=== PATIENT | male | born 1935 | race Caucasian/White ===

== ENCOUNTER 2021-04-19 04:47 | Day surgery (SDC) | payer OTHER, BC ==
[2021-04-18 16:38] VITALS: BMI 23.9
[2021-04-19 09:47] LABS: BASO % 0.5 % (0-2.0); EOS % 0.7 % (0-4.5); HEMATOCRIT 41.3 % (35.4-49); HEMOGLOBIN 13.7 GM/dL (11.7-16.9); LYMPH % 9.5 % (8-40); MCH 26.1 pg (25.7-33.7); MCHC 33.1 g/dl (32.0-35.9); MEAN CELL VOLUME 78.8 fl (80-96); MEAN PLT VOLUME 9.8 fl (7.5-11.1); NEUT % 78.3 % (42.8-82.8); PLATELET COUNT 223 K/MM3 (134-434); RBC 5.24 M/mm3 (4.00-5.60); RDW 16.7 % (11.9-15.9); WHITE BLOOD COUNT 14.8 K/mm3 (4.0-10.0)
[2021-04-19 09:54] LABS: INR 1.14 (0.83-1.09)
[2021-04-19 14:44] VITALS: BP 167/73; PULSE 70
[2021-04-19 14:49] VITALS: TEMP 97.8
== END 2021-04-19 13:30 | disposition home or self-care (01) ==
LOC: JRADIR 04:47
PROVIDERS: ATTEND Internal Medicine Pulmonary Disease
PROC: 07D63ZX Extraction of Left Axillary Lymphatic, Percutaneous Approach, Diagnostic (ICD-10-PCS; principal; 2021-04-19)
DX: C82.34 Follicular lymphoma grade IIIa, lymph nodes of axilla and upper limb (principal)
CPT/HCPCS: 36415; 38505; 76942-TC; 85025; 85610; 87899; 88305-TC

== ENCOUNTER 2021-06-04 10:22 | Inpatient (IN) | payer OTHER, BC ==
[2021-06-04 11:22] VITALS: BMI 25.0
[2021-06-04 11:25] LABS: URINE APPEARANCE CLEAR; URINE BILIRUBIN NEGATIVE (NEGATIVE); URINE COLOR YELLOW; URINE GLUCOSE (UA) NEGATIVE (NEGATIVE); URINE KETONE NEGATIVE (NEGATIVE); URINE LEUK ESTERASE NEGATIVE (NEGATIVE); URINE NITRITE NEGATIVE (NEGATIVE); URINE PROTEIN TRACE (NEGATIVE)
[2021-06-04 12:03] LABS: BASO % 0.9 % (0-2.0); EOS % 0.3 % (0-4.5); HEMATOCRIT 37.2 % (35.4-49); LYMPH % 9.7 % (8-40); MCH 25.7 pg (25.7-33.7); MCHC 32.3 g/dl (32.0-35.9); MEAN CELL VOLUME 79.5 fl (80-96); MEAN PLT VOLUME 9.9 fl (7.5-11.1); NEUT % 76.1 % (42.8-82.8); PLATELET COUNT 178 10^3/uL (134-434); RBC 4.68 M/mm3 (4.00-5.60); RDW 18.4 % (11.9-15.9); WHITE BLOOD COUNT 9.7 K/mm3 (4.0-10.0)
[2021-06-04 12:17] LABS: CHLORIDE 103 mmol/L (98-107); SODIUM 141 mmol/L (136-145)
[2021-06-04 12:19] LABS: CALCIUM 13.7 mg/dL (8.5-10.1)
[2021-06-04 12:20] LABS: ALBUMIN 2.6 g/dl (3.4-5.0); ANION GAP 10 MMOL/L (8-16); BLOOD UREA NITROGEN 23.1 mg/dL (7-18); CO2 28 mmol/L (21-32); GLUCOSE,RANDOM 93 mg/dL (74-106)
[2021-06-04 12:22] LABS: INR 1.03 (0.83-1.09); PROTHROMBIN TIME (PATIENT) 12.4 SEC (9.7-13.0)
[2021-06-04 12:23] LABS: CREATININE 1.1 mg/dL (0.55-1.3); SGOT/AST 48 U/L (15-37); SGPT/ALT 16 U/L (13-61)
[2021-06-04 12:25] LABS: ACTIVATED PTT 23.3 SECONDS (25.2-36.5); TOT PROT 5.5 g/dl (6.4-8.2)
[2021-06-04 12:26] LABS: ALK PHOS 70 U/L (45-117)
[2021-06-04 12:55] LABS: LACTIC ACID 4.4 mmol/L (0.4-2.0)
[2021-06-04] MEDS ORDERED: SODIUM CHLORIDE 1,000 ML IV STA (13:34)
[2021-06-04] MEDS ORDERED: CALCITONIN - SALMON SYNTHETIC 400 UNIT/2 ML VIAL IM ONE (13:35)
[2021-06-04] MEDS ORDERED: SODIUM CHLORIDE 1,000 ML IV SCH (13:45)
[2021-06-04] MEDS ORDERED: ZOLEDRONIC ACID 4 MG in SODIUM CHLORIDE 100 ML IVPB ONE (14:05)
[2021-06-04] MEDS ORDERED: HALOPERIDOL LACTATE 5 MG/ML IV ONE (16:09)
[2021-06-04] MEDS ORDERED: HALOPERIDOL LACTATE 5 MG/ML ONE (16:10)
[2021-06-04] MEDS ORDERED: ALBUTEROL SO4 2.5/IPRATROPIUM 0.5 INH SOL 3 ML VIAL.NEB. NEB PRN (16:58)
[2021-06-04] MEDS ORDERED: ACETAMINOPHEN 325 MG TABLET (FP) PO PRN (16:58)
[2021-06-04] MEDS: OFLOXACIN 0.3% OPHTHALMIC SOLUTION 5 ML BOTTLE OD SCH ×2 (18:56→22:32)
[2021-06-04 19:39] LABS: LACTIC ACID 4.2 mmol/L (0.4-2.0)
[2021-06-04] MEDS: MIRTAZAPINE 15 MG TABLET (FP) PO SCH ×2 (21:32→21:47)
[2021-06-04] MEDS: MONTELUKAST NA 10 MG TABLET PO SCH ×2 (21:33→21:47)
[2021-06-04] MEDS: ATORVASTATIN CA 40 MG TABLET (FP) PO SCH ×2 (21:33→21:47)
[2021-06-04] MEDS: BUDESONIDE/FORMETEROL FUMARATE 160/4.5 mcg INHALER IH SCH (22:30)
[2021-06-05] MEDS ORDERED: CALCITONIN - SALMON SYNTHETIC 400 UNIT/2 ML VIAL IM ONE (02:00)
[2021-06-05] MEDS: OFLOXACIN 0.3% OPHTHALMIC SOLUTION 5 ML BOTTLE OD SCH ×5 (06:00→21:24)
[2021-06-05 08:03] LABS: HEMATOCRIT 37.4 % (35.4-49); MCH 25.9 pg (25.7-33.7); MCHC 32.2 g/dl (32.0-35.9); MEAN CELL VOLUME 80.5 fl (80-96); MEAN PLT VOLUME 10.1 fl (7.5-11.1); PLATELET COUNT 165 10^3/uL (134-434); RBC 4.65 M/mm3 (4.00-5.60); RDW 18.1 % (11.9-15.9); WHITE BLOOD COUNT 13.3 K/mm3 (4.0-10.0)
[2021-06-05 08:17] LABS: ALBUMIN 2.4 g/dl (3.4-5.0); BLOOD UREA NITROGEN 22.6 mg/dL (7-18); CALCIUM 12.1 mg/dL (8.5-10.1)
[2021-06-05 08:21] LABS: CREATININE 0.9 mg/dL (0.55-1.3)
[2021-06-05 08:22] LABS: BILIRUBIN,TOTAL 1.1 mg/dL (0.2-1); TOT PROT 4.8 g/dl (6.4-8.2)
[2021-06-05] MEDS: BUDESONIDE/FORMETEROL FUMARATE 160/4.5 mcg INHALER IH SCH ×2 (10:18→21:24)
[2021-06-05] MEDS: EZETIMIBE 10 MG TABLET (FP) PO SCH (10:19)
[2021-06-05] MEDS: ASPIRIN COATED 81 MG TABLET.EC PO SCH (10:20)
[2021-06-05] MEDS: PANTOPRAZOLE 40 MG TABLET PO SCH (10:20)
[2021-06-05] MEDS: amLODIPine BESYLATE 5 MG TABLET (FP) PO SCH (10:20)
[2021-06-05] MEDS ORDERED: SODIUM CHLORIDE 250 ML IV STA (11:01)
[2021-06-05] MEDS: CALCITONIN - SALMON SYNTHETIC 400 UNIT/2 ML VIAL IM SCH (12:54)
[2021-06-05] MEDS: SODIUM CHLORIDE 1,000 ML IV SCH (12:59)
[2021-06-05] MEDS ORDERED: DEXTROSE 5%-WATER - 50 ML IVPB ONE (15:14)
[2021-06-05] MEDS ORDERED: cefTRIAXone SODIUM 1 GM VIAL ONE (15:14)
[2021-06-05] MEDS: CEFTRIAXONE 1 GM in DEXTROSE 5%-WATER - 50 ML IVPB SCH (15:21)
[2021-06-05] MEDS: ATORVASTATIN CA 40 MG TABLET (FP) PO SCH (21:22)
[2021-06-05] MEDS: MONTELUKAST NA 10 MG TABLET PO SCH (21:23)
[2021-06-05] MEDS: MIRTAZAPINE 15 MG TABLET (FP) PO SCH (21:23)
[2021-06-06] MEDS: CALCITONIN - SALMON SYNTHETIC 400 UNIT/2 ML VIAL IM SCH (01:03)
[2021-06-06] MEDS: OFLOXACIN 0.3% OPHTHALMIC SOLUTION 5 ML BOTTLE OD SCH ×5 (06:07→22:13)
[2021-06-06 08:28] LABS: ALBUMIN 2.2 g/dl (3.4-5.0); BLOOD UREA NITROGEN 23.2 mg/dL (7-18); CALCIUM 10.9 mg/dL (8.5-10.1)
[2021-06-06 08:31] LABS: CREATININE 0.9 mg/dL (0.55-1.3)
[2021-06-06 08:33] LABS: BILIRUBIN,TOTAL 0.9 mg/dL (0.2-1); TOT PROT 4.4 g/dl (6.4-8.2)
[2021-06-06] MEDS ORDERED: DEXTROSE 5%-WATER - 50 ML IVPB ONE (09:04)
[2021-06-06] MEDS ORDERED: cefTRIAXone SODIUM 1 GM VIAL ONE (09:04)
[2021-06-06 10:29] LABS: BASO % 0.6 % (0-2.0); EOS % 0.2 % (0-4.5); HEMATOCRIT 34.1 % (35.4-49); HEMOGLOBIN 11.1 GM/dL (11.7-16.9); LYMPH % 8.8 % (8-40); MCH 26.5 pg (25.7-33.7); MCHC 32.6 g/dl (32.0-35.9); MEAN PLT VOLUME 10.1 fl (7.5-11.1); MONO % 9.4 % (3.8-10.2); PLATELET COUNT 131 10^3/uL (134-434); RBC 4.21 M/mm3 (4.00-5.60); RDW 18.9 % (11.9-15.9); WHITE BLOOD COUNT 10.7 K/mm3 (4.0-10.0)
[2021-06-06] MEDS: KCL 10 MEQ IVPB 10 MEQ/100 ML INFUS.BAG IVPB SCH ×2 (10:54→11:49)
[2021-06-06] MEDS: PANTOPRAZOLE 40 MG TABLET PO SCH (10:55)
[2021-06-06] MEDS: BUDESONIDE/FORMETEROL FUMARATE 160/4.5 mcg INHALER IH SCH ×2 (10:55→22:12)
[2021-06-06] MEDS: EZETIMIBE 10 MG TABLET (FP) PO SCH (10:55)
[2021-06-06] MEDS: amLODIPine BESYLATE 5 MG TABLET (FP) PO SCH (10:55)
[2021-06-06] MEDS: ASPIRIN COATED 81 MG TABLET.EC PO SCH (10:55)
[2021-06-06] MEDS: CEFTRIAXONE 1 GM in DEXTROSE 5%-WATER - 50 ML IVPB SCH (10:58)
[2021-06-06 11:02] LABS: LACTIC ACID 2.7 mmol/L (0.4-2.0)
[2021-06-06] MEDS: SODIUM CHLORIDE 1,000 ML IV SCH (11:45)
[2021-06-06] MEDS: D5-1/2NS+20 MEQ KCL - 20 MEQ/1,000 ML INFUS.BAG IV SCH (12:51)
[2021-06-06] MEDS ORDERED: MAGNESIUM SULF 50% (8.12 MEQ/2 ML-1 GM VIAL) IVPB ONE (16:24)
[2021-06-06] MEDS: MONTELUKAST NA 10 MG TABLET PO SCH (22:12)
[2021-06-06] MEDS: ATORVASTATIN CA 40 MG TABLET (FP) PO SCH (22:12)
[2021-06-06] MEDS: MIRTAZAPINE 15 MG TABLET (FP) PO SCH (22:12)
[2021-06-07] MEDS: OFLOXACIN 0.3% OPHTHALMIC SOLUTION 5 ML BOTTLE OD SCH ×5 (06:27→21:47)
[2021-06-07 07:55] LABS: BASO % 0.5 % (0-2.0); EOS % 0.3 % (0-4.5); HEMOGLOBIN 12.2 GM/dL (11.7-16.9); LYMPH % 9.4 % (8-40); MCH 26.1 pg (25.7-33.7); MCHC 32.1 g/dl (32.0-35.9); MEAN CELL VOLUME 81.4 fl (80-96); MEAN PLT VOLUME 9.7 fl (7.5-11.1); NEUT % 81.8 % (42.8-82.8); PLATELET COUNT 164 10^3/uL (134-434); RBC 4.67 M/mm3 (4.00-5.60); RDW 19.1 % (11.9-15.9); WHITE BLOOD COUNT 10.8 K/mm3 (4.0-10.0)
[2021-06-07 08:14] LABS: ALBUMIN 2.4 g/dl (3.4-5.0); BLOOD UREA NITROGEN 21.1 mg/dL (7-18); CALCIUM 10.4 mg/dL (8.5-10.1)
[2021-06-07 08:17] LABS: CREATININE 0.7 mg/dL (0.55-1.3)
[2021-06-07 08:19] LABS: TOT PROT 4.9 g/dl (6.4-8.2)
[2021-06-07] MEDS ORDERED: DEXTROSE 5%-WATER - 50 ML IVPB ONE (09:31)
[2021-06-07] MEDS ORDERED: cefTRIAXone SODIUM 1 GM VIAL ONE (09:31)
[2021-06-07 10:11] LABS: MAGNESIUM 1.9 mg/dL (1.8-2.4)
[2021-06-07] MEDS: EZETIMIBE 10 MG TABLET (FP) PO SCH (10:19)
[2021-06-07] MEDS: CEFTRIAXONE 1 GM in DEXTROSE 5%-WATER - 50 ML IVPB SCH (10:19)
[2021-06-07] MEDS: PANTOPRAZOLE 40 MG TABLET PO SCH (10:19)
[2021-06-07] MEDS: ASPIRIN COATED 81 MG TABLET.EC PO SCH (10:19)
[2021-06-07] MEDS: amLODIPine BESYLATE 5 MG TABLET (FP) PO SCH (10:19)
[2021-06-07] MEDS: BUDESONIDE/FORMETEROL FUMARATE 160/4.5 mcg INHALER IH SCH ×2 (10:20→21:46)
[2021-06-07] MEDS: D5-1/2NS+20 MEQ KCL - 20 MEQ/1,000 ML INFUS.BAG IV SCH (11:25)
[2021-06-07] MEDS ORDERED: ALBUTEROL SO4 2.5/IPRATROPIUM 0.5 INH SOL 3 ML VIAL.NEB. NEB PRN (19:21)
[2021-06-07] MEDS ORDERED: ACETAMINOPHEN 325 MG TABLET (FP) PO PRN (19:21)
[2021-06-07] MEDS: ATORVASTATIN CA 40 MG TABLET (FP) PO SCH (21:45)
[2021-06-07] MEDS: MIRTAZAPINE 15 MG TABLET (FP) PO SCH (21:45)
[2021-06-07] MEDS: MONTELUKAST NA 10 MG TABLET PO SCH (21:45)
[2021-06-08] MEDS: OFLOXACIN 0.3% OPHTHALMIC SOLUTION 5 ML BOTTLE OD SCH ×5 (06:09→21:05)
[2021-06-08 08:02] LABS: CALCIUM 10.4 mg/dL (8.5-10.1)
[2021-06-08 08:03] LABS: ALBUMIN 2.3 g/dl (3.4-5.0); BLOOD UREA NITROGEN 17.7 mg/dL (7-18)
[2021-06-08 08:06] LABS: CREATININE 0.7 mg/dL (0.55-1.3)
[2021-06-08 08:08] LABS: BILIRUBIN,TOTAL 1.1 mg/dL (0.2-1)
[2021-06-08] MEDS ORDERED: DEXTROSE 5%-WATER - 50 ML IVPB ONE (09:45)
[2021-06-08] MEDS ORDERED: cefTRIAXone SODIUM 1 GM VIAL ONE (09:45)
[2021-06-08] MEDS: CEFTRIAXONE 1 GM in DEXTROSE 5%-WATER - 50 ML IVPB SCH (09:48)
[2021-06-08] MEDS: PANTOPRAZOLE 40 MG TABLET PO SCH (09:48)
[2021-06-08] MEDS: amLODIPine BESYLATE 5 MG TABLET (FP) PO SCH (09:48)
[2021-06-08] MEDS: ASPIRIN COATED 81 MG TABLET.EC PO SCH (09:48)
[2021-06-08] MEDS: EZETIMIBE 10 MG TABLET (FP) PO SCH (09:48)
[2021-06-08] MEDS: BUDESONIDE/FORMETEROL FUMARATE 160/4.5 mcg INHALER IH SCH ×2 (09:49→21:02)
[2021-06-08] MEDS: AMINO ACIDS/PROTEIN HYDROLYS 30 ML LIQUID.PKT PO SCH (16:58)
[2021-06-08] MEDS: D5-1/2NS+20 MEQ KCL - 20 MEQ/1,000 ML INFUS.BAG IV SCH (16:58)
[2021-06-08] MEDS ORDERED: PT OWN MED DRAWER 7, Y5N ONE (20:39)
[2021-06-08] MEDS: MONTELUKAST NA 10 MG TABLET PO SCH (21:05)
[2021-06-08] MEDS: MIRTAZAPINE 15 MG TABLET (FP) PO SCH (21:05)
[2021-06-08] MEDS: ATORVASTATIN CA 40 MG TABLET (FP) PO SCH (21:05)
[2021-06-09] MEDS: OFLOXACIN 0.3% OPHTHALMIC SOLUTION 5 ML BOTTLE OD SCH ×5 (06:38→21:18)
[2021-06-09] MEDS: D5-1/2NS+20 MEQ KCL - 20 MEQ/1,000 ML INFUS.BAG IV SCH ×2 (06:38→17:52)
[2021-06-09 07:39] LABS: BLOOD UREA NITROGEN 16.2 mg/dL (7-18)
[2021-06-09 07:40] LABS: ALBUMIN 2.1 g/dl (3.4-5.0)
[2021-06-09 07:41] LABS: CALCIUM 9.9 mg/dL (8.5-10.1)
[2021-06-09 07:44] LABS: CREATININE 0.8 mg/dL (0.55-1.3)
[2021-06-09 07:45] LABS: BILIRUBIN,TOTAL 0.9 mg/dL (0.2-1); TOT PROT 4.4 g/dl (6.4-8.2)
[2021-06-09] MEDS ORDERED: DEXTROSE 5%-WATER - 50 ML IVPB ONE (10:36)
[2021-06-09] MEDS ORDERED: cefTRIAXone SODIUM 1 GM VIAL ONE (10:36)
[2021-06-09] MEDS ORDERED: PT OWN MED DRAWER 7, Y5N ONE ×2 (10:36→20:28)
[2021-06-09] MEDS: CEFTRIAXONE 1 GM in DEXTROSE 5%-WATER - 50 ML IVPB SCH (10:40)
[2021-06-09] MEDS: AMINO ACIDS/PROTEIN HYDROLYS 30 ML LIQUID.PKT PO SCH ×2 (10:40→17:52)
[2021-06-09] MEDS: BUDESONIDE/FORMETEROL FUMARATE 160/4.5 mcg INHALER IH SCH ×2 (10:41→21:23)
[2021-06-09] MEDS: PANTOPRAZOLE 40 MG TABLET PO SCH (10:41)
[2021-06-09] MEDS: ASPIRIN COATED 81 MG TABLET.EC PO SCH (10:41)
[2021-06-09] MEDS: amLODIPine BESYLATE 5 MG TABLET (FP) PO SCH (10:41)
[2021-06-09] MEDS: EZETIMIBE 10 MG TABLET (FP) PO SCH (17:52)
[2021-06-09] MEDS: MIRTAZAPINE 15 MG TABLET (FP) PO SCH (21:18)
[2021-06-09] MEDS: MONTELUKAST NA 10 MG TABLET PO SCH (21:18)
[2021-06-09] MEDS: ATORVASTATIN CA 40 MG TABLET (FP) PO SCH (21:20)
[2021-06-10] MEDS: OFLOXACIN 0.3% OPHTHALMIC SOLUTION 5 ML BOTTLE OD SCH ×5 (06:27→21:10)
[2021-06-10] MEDS: AMINO ACIDS/PROTEIN HYDROLYS 30 ML LIQUID.PKT PO SCH ×2 (09:34→17:20)
[2021-06-10] MEDS ORDERED: ALLOPURINOL 100 MG TABLET (FP) PO SCH (10:00)
[2021-06-10] MEDS ORDERED: PT OWN MED DRAWER 7, Y5N ONE (10:34)
[2021-06-10] MEDS ORDERED: cefTRIAXone SODIUM 1 GM VIAL ONE (10:35)
[2021-06-10] MEDS ORDERED: DEXTROSE 5%-WATER - 50 ML IVPB ONE (10:35)
[2021-06-10] MEDS: ALLOPURINOL 300 MG TABLET (FP) PO SCH (10:37)
[2021-06-10] MEDS: ASPIRIN COATED 81 MG TABLET.EC PO SCH (10:37)
[2021-06-10] MEDS: CEFTRIAXONE 1 GM in DEXTROSE 5%-WATER - 50 ML IVPB SCH ×2 (10:37→19:33)
[2021-06-10] MEDS: PANTOPRAZOLE 40 MG TABLET PO SCH (10:37)
[2021-06-10] MEDS: EZETIMIBE 10 MG TABLET (FP) PO SCH (10:37)
[2021-06-10] MEDS: amLODIPine BESYLATE 5 MG TABLET (FP) PO SCH (10:37)
[2021-06-10] MEDS: BUDESONIDE/FORMETEROL FUMARATE 160/4.5 mcg INHALER IH SCH ×2 (10:40→21:10)
[2021-06-10] MEDS: MONTELUKAST NA 10 MG TABLET PO SCH (21:09)
[2021-06-10] MEDS: MIRTAZAPINE 15 MG TABLET (FP) PO SCH (21:09)
[2021-06-10] MEDS: ATORVASTATIN CA 40 MG TABLET (FP) PO SCH (21:09)
[2021-06-11] MEDS: OFLOXACIN 0.3% OPHTHALMIC SOLUTION 5 ML BOTTLE OD SCH ×5 (05:44→22:10)
[2021-06-11 07:52] LABS: BASO % 0.6 % (0-2.0); EOS % 0.3 % (0-4.5); HEMATOCRIT 32.3 % (35.4-49); HEMOGLOBIN 10.8 GM/dL (11.7-16.9); LYMPH % 12.2 % (8-40); MCHC 33.4 g/dl (32.0-35.9); MEAN CELL VOLUME 80.8 fl (80-96); MEAN PLT VOLUME 9.9 fl (7.5-11.1); MONO % 9.8 % (3.8-10.2); NEUT % 77.1 % (42.8-82.8); PLATELET COUNT 122 10^3/uL (134-434); RDW 19.2 % (11.9-15.9); WHITE BLOOD COUNT 9.5 K/mm3 (4.0-10.0)
[2021-06-11 08:04] LABS: ALBUMIN 2.1 g/dl (3.4-5.0); BLOOD UREA NITROGEN 23.5 mg/dL (7-18); CALCIUM 9.8 mg/dL (8.5-10.1)
[2021-06-11 08:06] LABS: CREATININE 0.8 mg/dL (0.55-1.3); URIC ACID 5.6 mg/dL (2.6-7.2)
[2021-06-11 08:08] LABS: BILIRUBIN,TOTAL 1.1 mg/dL (0.2-1); TOT PROT 4.3 g/dl (6.4-8.2)
[2021-06-11] MEDS ORDERED: POTASSIUM CHLORIDE ORAL LIQUID 20 MEQ/15 ML PO ONE ×2 (08:47→15:00)
[2021-06-11] MEDS ORDERED: KCL 10 MEQ IVPB 10 MEQ/100 ML INFUS.BAG IVPB SCH (09:00)
[2021-06-11] MEDS ORDERED: PT OWN MED DRAWER 7, Y5N ONE (09:45)
[2021-06-11] MEDS: PANTOPRAZOLE 40 MG TABLET PO SCH (10:45)
[2021-06-11] MEDS: ASPIRIN COATED 81 MG TABLET.EC PO SCH (10:45)
[2021-06-11] MEDS: ALLOPURINOL 300 MG TABLET (FP) PO SCH (10:45)
[2021-06-11] MEDS: EZETIMIBE 10 MG TABLET (FP) PO SCH (10:46)
[2021-06-11] MEDS: AMINO ACIDS/PROTEIN HYDROLYS 30 ML LIQUID.PKT PO SCH ×2 (10:46→16:41)
[2021-06-11] MEDS: BUDESONIDE/FORMETEROL FUMARATE 160/4.5 mcg INHALER IH SCH ×2 (10:46→22:08)
[2021-06-11] MEDS: amLODIPine BESYLATE 5 MG TABLET (FP) PO SCH (10:46)
[2021-06-11] MEDS: ATORVASTATIN CA 40 MG TABLET (FP) PO SCH (22:08)
[2021-06-11] MEDS: MONTELUKAST NA 10 MG TABLET PO SCH (22:10)
[2021-06-11] MEDS: MIRTAZAPINE 15 MG TABLET (FP) PO SCH (22:10)
[2021-06-12] MEDS: OFLOXACIN 0.3% OPHTHALMIC SOLUTION 5 ML BOTTLE OD SCH ×5 (05:44→21:04)
[2021-06-12 07:45] LABS: HEMATOCRIT 32.6 % (35.4-49); HEMOGLOBIN 10.7 GM/dL (11.7-16.9); MCH 26.5 pg (25.7-33.7); MCHC 32.7 g/dl (32.0-35.9); MEAN PLT VOLUME 9.6 fl (7.5-11.1); PLATELET COUNT 126 10^3/uL (134-434); RBC 4.03 M/mm3 (4.00-5.60); RDW 19.6 % (11.9-15.9); WHITE BLOOD COUNT 9.4 K/mm3 (4.0-10.0)
[2021-06-12 07:56] LABS: CALCIUM 9.9 mg/dL (8.5-10.1)
[2021-06-12 07:57] LABS: MAGNESIUM 1.7 mg/dL (1.8-2.4)
[2021-06-12 08:00] LABS: CREATININE 0.8 mg/dL (0.55-1.3)
[2021-06-12] MEDS: AMINO ACIDS/PROTEIN HYDROLYS 30 ML LIQUID.PKT PO SCH ×2 (08:40→18:09)
[2021-06-12] MEDS ORDERED: PT OWN MED DRAWER 7, Y5N ONE (09:55)
[2021-06-12] MEDS: amLODIPine BESYLATE 5 MG TABLET (FP) PO SCH (10:11)
[2021-06-12] MEDS: PANTOPRAZOLE 40 MG TABLET PO SCH (10:11)
[2021-06-12] MEDS: ASPIRIN COATED 81 MG TABLET.EC PO SCH (10:12)
[2021-06-12] MEDS: ALLOPURINOL 300 MG TABLET (FP) PO SCH (10:12)
[2021-06-12] MEDS: EZETIMIBE 10 MG TABLET (FP) PO SCH (10:12)
[2021-06-12] MEDS: BUDESONIDE/FORMETEROL FUMARATE 160/4.5 mcg INHALER IH SCH ×2 (10:13→21:04)
[2021-06-12] MEDS ORDERED: MAGNESIUM OXIDE 400 MG TABLET (FP) PO ONE (12:25)
[2021-06-12] MEDS: MONTELUKAST NA 10 MG TABLET PO SCH (21:04)
[2021-06-12] MEDS: MIRTAZAPINE 15 MG TABLET (FP) PO SCH (21:04)
[2021-06-12] MEDS: ATORVASTATIN CA 40 MG TABLET (FP) PO SCH (21:04)
[2021-06-13] MEDS: OFLOXACIN 0.3% OPHTHALMIC SOLUTION 5 ML BOTTLE OD SCH ×3 (05:01→14:00)
[2021-06-13] MEDS: AMINO ACIDS/PROTEIN HYDROLYS 30 ML LIQUID.PKT PO SCH (09:14)
[2021-06-13] MEDS: amLODIPine BESYLATE 5 MG TABLET (FP) PO SCH (09:15)
[2021-06-13] MEDS: ASPIRIN COATED 81 MG TABLET.EC PO SCH (09:15)
[2021-06-13] MEDS: ALLOPURINOL 300 MG TABLET (FP) PO SCH (09:15)
[2021-06-13] MEDS: PANTOPRAZOLE 40 MG TABLET PO SCH (09:15)
[2021-06-13] MEDS: EZETIMIBE 10 MG TABLET (FP) PO SCH (09:16)
[2021-06-13] MEDS: BUDESONIDE/FORMETEROL FUMARATE 160/4.5 mcg INHALER IH SCH (09:17)
[2021-06-13 14:13] VITALS: BP 146/77; PULSE 89; TEMP 98.5
== END 2021-06-13 16:46 | DRG 840 ==
LOC: JER 10:22 → JERBED 13:51 → J4W 20:07 → J7W 06-07 18:15
PROVIDERS: ADMIT Family Medicine; ATTEND Family Medicine
DX: C82.38 Follicular lymphoma grade IIIa, lymph nodes of multiple sites (principal); G93.41 Metabolic encephalopathy; C83.30 Diffuse large B-cell lymphoma, unspecified site; N17.9 Acute kidney failure, unspecified; E87.2 Acidosis; N39.0 Urinary tract infection, site not specified; E87.0 Hyperosmolality and hypernatremia; E83.52 Hypercalcemia; R41.82 Altered mental status, unspecified; J44.9 Chronic obstructive pulmonary disease, unspecified; E78.5 Hyperlipidemia, unspecified; I10 Essential (primary) hypertension; E88.09 Other disorders of plasma-protein metabolism, not elsewhere classified; D72.829 Elevated white blood cell count, unspecified; Z99.81 Dependence on supplemental oxygen; Z85.51 Personal history of malignant neoplasm of bladder
CPT/HCPCS: 36415; 70450-TC; 71045-TC-FY; 80048; 80053; 81003; 82955; 82962; 83605; 83615; 83735; 84484; 84550; 85025; 85027; 85610; 85730; 87040; 87086; 93005; 93010; 94640; 97116-GP; 97162-GP; 99285-25; C9803; J3489; U0003; U0005

== ENCOUNTER 2021-06-20 16:17 | Inpatient (IN) | payer OTHER, BC ==
[2021-06-20 17:04] VITALS: BMI 22.7
[2021-06-20] MEDS ORDERED: SODIUM CHLORIDE 1,973 ML IV ONE (17:06)
[2021-06-20] MEDS ORDERED: ACETAMINOPHEN 1000 MG/100 ML VIAL (NON FORMULARY) IVPB ONE (17:07)
[2021-06-20] MEDS ORDERED: ACETAMINOPHEN INJECTION 100 ML IVPB ONE (17:47)
[2021-06-20 18:22] LABS: BASO % 0.9 % (0-2.0); EOS % 0.2 % (0-4.5); HEMATOCRIT 34.6 % (35.4-49); HEMOGLOBIN 11.2 GM/dL (11.7-16.9); LYMPH % 12.5 % (8-40); MCHC 32.4 g/dl (32.0-35.9); MEAN CELL VOLUME 83.3 fl (80-96); MEAN PLT VOLUME 9.4 fl (7.5-11.1); MONO % 8.6 % (3.8-10.2); NEUT % 77.8 % (42.8-82.8); PLATELET COUNT 106 10^3/uL (134-434); RBC 4.16 M/mm3 (4.00-5.60); RDW 21.5 % (11.9-15.9); WHITE BLOOD COUNT 8.8 K/mm3 (4.0-10.0)
[2021-06-20 18:30] LABS: INR 1.24 (0.83-1.09); PROTHROMBIN TIME (PATIENT) 14.9 SEC (9.7-13.0)
[2021-06-20 18:32] LABS: ACTIVATED PTT 23.5 SECONDS (25.2-36.5)
[2021-06-20 18:48] LABS: CHLORIDE 116 mmol/L (98-107); SODIUM 150 mmol/L (136-145)
[2021-06-20 18:52] LABS: ALBUMIN 2.2 g/dl (3.4-5.0); ANION GAP 10 MMOL/L (8-16); BLOOD UREA NITROGEN 39.4 mg/dL (7-18); CO2 24 mmol/L (21-32); GLUCOSE,RANDOM 81 mg/dL (74-106)
[2021-06-20 18:55] LABS: CREATININE 1.1 mg/dL (0.55-1.3); SGOT/AST 61 U/L (15-37); SGPT/ALT 16 U/L (13-61)
[2021-06-20 18:56] LABS: ALK PHOS 76 U/L (45-117); BILIRUBIN,TOTAL 1.1 mg/dL (0.2-1); TOT PROT 4.7 g/dl (6.4-8.2)
[2021-06-20 18:57] LABS: LACTIC ACID 5.2 mmol/L (0.4-2.0)
[2021-06-20] MEDS ORDERED: PIPERACILLIN/TAZOB 3.375 GM 3.375 GM in DEXTROSE 5%-WATER - 50 ML IVPB ONE (19:00)
[2021-06-20 19:01] LABS: CALCIUM 11.4 mg/dL (8.5-10.1)
[2021-06-20] MEDS ORDERED: PIPERACILLIN/TAZOB 3.375 GM 3.375 GM/50 ML BAG IVPB ONE (19:07)
[2021-06-20] MEDS ORDERED: VANCOMYCIN 1,000 MG in DEXTROSE 5%-WATER - 250 ML IVPB ONE (19:11)
[2021-06-20] MEDS ORDERED: LACTATED RINGERS SOLUTION 1000 ML INFUS.BAG IV ONE (19:12)
[2021-06-20 19:15] LABS: ANISOCYTOSIS 2+; MACROCYTOSIS 0
[2021-06-20 19:52] LABS: EPI CELLS >36 /uL (0-25.1); HYALINE CASTS 28 /uL (0-3.1); URINE APPEARANCE CLOUDY; URINE BACTERIA 5 /uL (0-1359); URINE BILIRUBIN NEGATIVE (NEGATIVE); URINE COLOR YELLOW; URINE GLUCOSE (UA) NEGATIVE (NEGATIVE); URINE KETONE NEGATIVE (NEGATIVE); URINE LEUK ESTERASE 1+ (NEGATIVE); URINE NITRITE NEGATIVE (NEGATIVE); URINE PROTEIN 1+ (NEGATIVE); URINE RBC 112 /uL (0-23.9); URINE WBC 68 /uL (0-25.8)
[2021-06-20] MEDS ORDERED: VANCOMYCIN 1 GRAM (PRE-DOCKED) 1,000 MG/250 ML BAG IVPB ONE (20:16)
[2021-06-21 00:01] LABS: LACTIC ACID 4.7 mmol/L (0.4-2.0)
[2021-06-21 02:22] LABS: LACTIC ACID 4.9 mmol/L (0.4-2.0)
[2021-06-21] MEDS ORDERED: SODIUM CHLORIDE 1,000 ML IV STA (04:08)
[2021-06-21] MEDS ORDERED: ALBUTEROL SO4 2.5/IPRATROPIUM 0.5 INH SOL 3 ML VIAL.NEB. NEB PRN (04:10)
[2021-06-21] MEDS ORDERED: ACETAMINOPHEN 1000 MG/100 ML VIAL (NON FORMULARY) IVPB PRN (04:12)
[2021-06-21] MEDS ORDERED: PIPERACILLIN/TAZOB 3.375 GM 3.375 GM/50 ML BAG IVPB ONE (04:33)
[2021-06-21] MEDS ORDERED: ALBUTEROL SO4 2.5/IPRATROPIUM 0.5 INH SOL 3 ML VIAL.NEB. NEB ONE (04:33)
[2021-06-21] MEDS: PIPERACILLIN/TAZOB 3.375 GM 3.375 GM in DEXTROSE 5%-WATER - 50 ML IVPB SCH ×5 (04:39→18:33)
[2021-06-21] MEDS ORDERED: LACTATED RINGERS SOLUTION 1,000 ML/1,000 ML INFUS.BAG IV SCH (05:15)
[2021-06-21] MEDS: LACTATED RINGERS SOLUTION 1,000 ML/1,000 ML INFUS.BAG IV SCH ×2 (07:04→12:05)
[2021-06-21] MEDS: VANCOMYCIN 1 GRAM (PRE-DOCKED) 1,000 MG/250 ML BAG IVPB SCH (12:04)
[2021-06-21] MEDS: PANTOPRAZOLE SODIUM 40 MG VIAL IVPUSH SCH (12:04)
[2021-06-21 14:03] LABS: BASO % 0.7 % (0-2.0); EOS % 0.4 % (0-4.5); HEMATOCRIT 35.1 % (35.4-49); HEMOGLOBIN 11.1 GM/dL (11.7-16.9); LYMPH % 8.6 % (8-40); MCH 27.1 pg (25.7-33.7); MCHC 31.6 g/dl (32.0-35.9); MEAN CELL VOLUME 85.8 fl (80-96); MEAN PLT VOLUME 9.8 fl (7.5-11.1); NEUT % 84.3 % (42.8-82.8); PLATELET COUNT 88 10^3/uL (134-434); RBC 4.08 M/mm3 (4.00-5.60); RDW 23.4 % (11.9-15.9); WHITE BLOOD COUNT 9.3 K/mm3 (4.0-10.0)
[2021-06-21 14:20] LABS: BLOOD UREA NITROGEN 30.6 mg/dL (7-18); CALCIUM 10.2 mg/dL (8.5-10.1)
[2021-06-21] MEDS ORDERED: POTASSIUM CHLORIDE TABS 10 MEQ TABLET.ER (FP) PO ONE (18:08)
[2021-06-21] MEDS ORDERED: PIPERACILLIN/TAZOBACTAM 3.375 GM VIAL IVPB ONE (18:47)
[2021-06-21] MEDS ORDERED: DEXTROSE 5%-WATER - 50 ML IVPB ONE (18:47)
[2021-06-21] MEDS ORDERED: D5-1/3NS+20 MEQ KCL - 20 MEQ/1,000 ML INFUS.BAG IV SCH (19:45)
[2021-06-21] MEDS: POTASSIUM CHLORIDE IV SCH (20:09)
[2021-06-21] MEDS: DEXTROSE 5% IV SCH (20:09)
[2021-06-21] MEDS: 1/3 NS IV SCH (20:09)
[2021-06-21] MEDS: MIRTAZAPINE 15 MG TABLET (FP) PO SCH (21:09)
[2021-06-21] MEDS: MONTELUKAST NA 10 MG TABLET PO SCH (21:09)
[2021-06-21] MEDS: ATORVASTATIN CA 40 MG TABLET (FP) PO SCH (21:09)
[2021-06-21] MEDS ORDERED: VANCOMYCIN 1 GM in D5W (PRE-DOCKED) 1,000 MG/250 ML IVPB SCH (22:00)
[2021-06-22] MEDS ORDERED: PIPERACILLIN/TAZOBACTAM 3.375 GM VIAL IVPB ONE ×2 (01:05→09:40)
[2021-06-22] MEDS ORDERED: DEXTROSE 5%-WATER - 50 ML IVPB ONE ×2 (01:05→09:40)
[2021-06-22] MEDS: POTASSIUM CHLORIDE IV SCH ×2 (02:03→07:40)
[2021-06-22] MEDS: PIPERACILLIN/TAZOB 3.375 GM 3.375 GM in DEXTROSE 5%-WATER - 50 ML IVPB SCH ×2 (02:03→09:55)
[2021-06-22] MEDS: DEXTROSE 5% IV SCH ×2 (02:03→07:40)
[2021-06-22] MEDS: 1/3 NS IV SCH ×2 (02:03→07:40)
[2021-06-22 09:03] LABS: HEMATOCRIT 31.9 % (35.4-49); HEMOGLOBIN 9.4 GM/dL (11.7-16.9); MCHC 29.5 g/dl (32.0-35.9); MEAN CELL VOLUME 91.6 fl (80-96); MEAN PLT VOLUME 9.6 fl (7.5-11.1); PLATELET COUNT 68 10^3/uL (134-434); RBC 3.49 M/mm3 (4.00-5.60); RDW 24.3 % (11.9-15.9); WHITE BLOOD COUNT 7.8 K/mm3 (4.0-10.0)
[2021-06-22 09:21] LABS: CALCIUM 9.5 mg/dL (8.5-10.1)
[2021-06-22 09:22] LABS: BLOOD UREA NITROGEN 25.6 mg/dL (7-18); MAGNESIUM 1.7 mg/dL (1.8-2.4)
[2021-06-22 09:25] LABS: CREATININE 1.1 mg/dL (0.55-1.3)
[2021-06-22 09:26] LABS: TOT PROT 3.8 g/dl (6.4-8.2)
[2021-06-22] MEDS: PANTOPRAZOLE SODIUM 40 MG VIAL IVPUSH SCH (09:44)
[2021-06-22] MEDS: ASPIRIN COATED 81 MG TABLET.EC PO SCH (09:46)
[2021-06-22] MEDS: amLODIPine BESYLATE 5 MG TABLET (FP) PO SCH (09:46)
[2021-06-22] MEDS: ALLOPURINOL 300 MG TABLET (FP) PO SCH (09:46)
[2021-06-22 09:56] LABS: ALBUMIN 1.8 g/dl (3.4-5.0); LACTIC ACID 6.1 mmol/L (0.4-2.0)
[2021-06-22] MEDS ORDERED: POTASSIUM CHLORIDE 10 MEQ in DEXTROSE 5%-1/3 NS - 500 ML IV SCH (10:00)
[2021-06-22] MEDS: VANCOMYCIN 1 GRAM (PRE-DOCKED) 1,000 MG/250 ML BAG IVPB SCH (11:52)
[2021-06-22] MEDS: SODIUM CHLORIDE 0.45% 1,000 ML IV SCH (14:39)
[2021-06-22] MEDS: AMINO ACIDS/PROTEIN HYDROLYS 30 ML LIQUID.PKT PO SCH (18:00)
[2021-06-22] MEDS: ATORVASTATIN CA 40 MG TABLET (FP) PO SCH (22:09)
[2021-06-22] MEDS: MONTELUKAST NA 10 MG TABLET PO SCH (22:09)
[2021-06-22] MEDS: MIRTAZAPINE 15 MG TABLET (FP) PO SCH (22:10)
[2021-06-23] MEDS: SODIUM CHLORIDE 0.45% 1,000 ML IV SCH ×2 (05:15→14:08)
[2021-06-23] MEDS: AMINO ACIDS/PROTEIN HYDROLYS 30 ML LIQUID.PKT PO SCH ×2 (11:00→17:42)
[2021-06-23 11:46] LABS: HEMOGLOBIN 11.5 GM/dL (11.7-16.9); MCH 26.6 pg (25.7-33.7); MCHC 30.9 g/dl (32.0-35.9); MEAN CELL VOLUME 85.9 fl (80-96); MEAN PLT VOLUME 9.3 fl (7.5-11.1); PLATELET COUNT 71 10^3/uL (134-434); RBC 4.31 M/mm3 (4.00-5.60); RDW 23.6 % (11.9-15.9); WHITE BLOOD COUNT 9.7 K/mm3 (4.0-10.0)
[2021-06-23 12:12] LABS: CALCIUM 9.8 mg/dL (8.5-10.1)
[2021-06-23 12:13] LABS: ALBUMIN 1.8 g/dl (3.4-5.0); MAGNESIUM 1.8 mg/dL (1.8-2.4)
[2021-06-23 12:18] LABS: TOT PROT 4.2 g/dl (6.4-8.2)
[2021-06-23] MEDS: MULTIVITAMINS (DAILY MVI) TABLET (FP) PO SCH (14:09)
[2021-06-23] MEDS: ASPIRIN COATED 81 MG TABLET.EC PO SCH (14:09)
[2021-06-23] MEDS: amLODIPine BESYLATE 5 MG TABLET (FP) PO SCH (14:09)
[2021-06-23] MEDS: ALLOPURINOL 300 MG TABLET (FP) PO SCH (14:10)
[2021-06-23] MEDS: PANTOPRAZOLE SODIUM 40 MG VIAL IVPUSH SCH (14:21)
[2021-06-23] MEDS: VANCOMYCIN 1 GRAM (PRE-DOCKED) 1,000 MG/250 ML BAG IVPB SCH (14:25)
[2021-06-23] MEDS ORDERED: AMPICILLIN SODIUM 2 GM VIAL ONE ×3 (14:34→21:46)
[2021-06-23] MEDS ORDERED: SODIUM CHLORIDE 100 ML IVPB ONE ×3 (14:34→21:47)
[2021-06-23] MEDS: AMPICILLIN - 2 GM in SODIUM CHLORIDE 100 ML IVPB SCH ×3 (14:48→21:54)
[2021-06-23] MEDS ORDERED: PT OWN MED DRAWER 7, Y5N ONE (15:38)
[2021-06-23] MEDS ORDERED: DEXTROSE 5%-WATER 100 ML IVPB ONE (20:14)
[2021-06-23] MEDS: CEFTRIAXONE 2 GM in DEXTROSE 5%-WATER 2 GM/100 ML BAG IVPB SCH (20:20)
[2021-06-23] MEDS: MONTELUKAST NA 10 MG TABLET PO SCH ×2 (21:54→22:03)
[2021-06-23] MEDS: MIRTAZAPINE 15 MG TABLET (FP) PO SCH ×2 (21:54→22:03)
[2021-06-23] MEDS: ATORVASTATIN CA 40 MG TABLET (FP) PO SCH ×2 (21:54→22:02)
[2021-06-24] MEDS ORDERED: AMPICILLIN SODIUM 2 GM VIAL ONE ×6 (02:07→21:46)
[2021-06-24] MEDS ORDERED: SODIUM CHLORIDE 100 ML IVPB ONE ×5 (02:08→21:46)
[2021-06-24] MEDS: AMPICILLIN - 2 GM in SODIUM CHLORIDE 100 ML IVPB SCH ×6 (02:11→22:51)
[2021-06-24] MEDS: SODIUM CHLORIDE 0.45% 1,000 ML IV SCH ×2 (05:06→16:10)
[2021-06-24] MEDS: CEFTRIAXONE 2 GM in DEXTROSE 5%-WATER 2 GM/100 ML BAG IVPB SCH ×2 (09:55→22:13)
[2021-06-24] MEDS: ALLOPURINOL 300 MG TABLET (FP) PO SCH (09:56)
[2021-06-24] MEDS: amLODIPine BESYLATE 5 MG TABLET (FP) PO SCH (09:56)
[2021-06-24] MEDS: ASPIRIN COATED 81 MG TABLET.EC PO SCH (09:56)
[2021-06-24] MEDS: AMINO ACIDS/PROTEIN HYDROLYS 30 ML LIQUID.PKT PO SCH ×2 (09:56→17:34)
[2021-06-24] MEDS: MULTIVITAMINS (DAILY MVI) TABLET (FP) PO SCH (09:56)
[2021-06-24] MEDS ORDERED: PT OWN MED DRAWER 7, Y5N ONE (10:17)
[2021-06-24] MEDS: PANTOPRAZOLE SODIUM 40 MG VIAL IVPUSH SCH (11:55)
[2021-06-24 12:11] LABS: ALBUMIN 1.8 g/dl (3.4-5.0); CALCIUM 9.6 mg/dL (8.5-10.1)
[2021-06-24 12:16] LABS: BILIRUBIN,TOTAL 0.9 mg/dL (0.2-1)
[2021-06-24] MEDS: POTASSIUM CHLORIDE 10 MEQ in SODIUM CHLORIDE 0.45% 1,000 ML IVPB SCH (15:49)
[2021-06-24] MEDS: MORPHINE SULFATE 2 MG/ML VIAL IVPUSH PRN (16:08)
[2021-06-24] MEDS: COLLAGENASE CLOSTRIDIUM HIST. 30 GRAMS TUBE TP SCH (16:10)
[2021-06-24] MEDS ORDERED: DEXTROSE 5%-WATER 100 ML IVPB ONE (21:47)
[2021-06-24] MEDS: MIRTAZAPINE 15 MG TABLET (FP) PO SCH (22:21)
[2021-06-24] MEDS: ATORVASTATIN CA 40 MG TABLET (FP) PO SCH (22:21)
[2021-06-24] MEDS: MONTELUKAST NA 10 MG TABLET PO SCH (22:21)
[2021-06-25] MEDS ORDERED: SODIUM CHLORIDE 100 ML IVPB ONE ×6 (00:58→21:29)
[2021-06-25] MEDS ORDERED: AMPICILLIN SODIUM 2 GM VIAL ONE ×6 (00:58→21:28)
[2021-06-25] MEDS: AMPICILLIN - 2 GM in SODIUM CHLORIDE 100 ML IVPB SCH ×6 (01:57→22:03)
[2021-06-25] MEDS ORDERED: DEXTROSE 5%-WATER 100 ML IVPB ONE ×2 (08:07→21:29)
[2021-06-25] MEDS: CEFTRIAXONE 2 GM in DEXTROSE 5%-WATER 2 GM/100 ML BAG IVPB SCH ×2 (08:16→21:30)
[2021-06-25] MEDS: AMINO ACIDS/PROTEIN HYDROLYS 30 ML LIQUID.PKT PO SCH ×2 (08:30→17:21)
[2021-06-25] MEDS: COLLAGENASE CLOSTRIDIUM HIST. 30 GRAMS TUBE TP SCH (11:45)
[2021-06-25] MEDS: MULTIVITAMINS (DAILY MVI) TABLET (FP) PO SCH (11:47)
[2021-06-25] MEDS: amLODIPine BESYLATE 5 MG TABLET (FP) PO SCH (11:47)
[2021-06-25] MEDS: ASPIRIN COATED 81 MG TABLET.EC PO SCH (11:47)
[2021-06-25] MEDS: ALLOPURINOL 300 MG TABLET (FP) PO SCH (11:48)
[2021-06-25] MEDS: PANTOPRAZOLE SODIUM 40 MG VIAL IVPUSH SCH (12:13)
[2021-06-25] MEDS: MORPHINE SULFATE 2 MG/ML VIAL IVPUSH PRN (13:21)
[2021-06-25] MEDS: POTASSIUM CHLORIDE 10 MEQ in SODIUM CHLORIDE 0.45% 1,000 ML IVPB SCH (15:29)
[2021-06-25] MEDS ORDERED: ACETAMINOPHEN 1000 MG/100 ML VIAL (NON FORMULARY) IVPB ONE (19:36)
[2021-06-25] MEDS: MONTELUKAST NA 10 MG TABLET PO SCH (22:07)
[2021-06-25] MEDS: MIRTAZAPINE 15 MG TABLET (FP) PO SCH (22:07)
[2021-06-25] MEDS: ATORVASTATIN CA 40 MG TABLET (FP) PO SCH (22:07)
[2021-06-26] MEDS ORDERED: AMPICILLIN SODIUM 2 GM VIAL ONE ×5 (01:03→18:42)
[2021-06-26] MEDS ORDERED: SODIUM CHLORIDE 100 ML IVPB ONE ×5 (01:04→18:43)
[2021-06-26] MEDS: AMPICILLIN - 2 GM in SODIUM CHLORIDE 100 ML IVPB SCH ×5 (02:06→18:44)
[2021-06-26] MEDS: AMINO ACIDS/PROTEIN HYDROLYS 30 ML LIQUID.PKT PO SCH (09:14)
[2021-06-26] MEDS ORDERED: DEXTROSE 5%-WATER 100 ML IVPB ONE ×2 (10:26→21:18)
[2021-06-26] MEDS: COLLAGENASE CLOSTRIDIUM HIST. 30 GRAMS TUBE TP SCH (10:28)
[2021-06-26] MEDS: MULTIVITAMINS (DAILY MVI) TABLET (FP) PO SCH (10:28)
[2021-06-26] MEDS: amLODIPine BESYLATE 5 MG TABLET (FP) PO SCH (10:28)
[2021-06-26] MEDS: ASPIRIN COATED 81 MG TABLET.EC PO SCH (10:28)
[2021-06-26] MEDS: PANTOPRAZOLE SODIUM 40 MG VIAL IVPUSH SCH (10:28)
[2021-06-26] MEDS: CEFTRIAXONE 2 GM in DEXTROSE 5%-WATER 2 GM/100 ML BAG IVPB SCH ×2 (10:28→21:56)
[2021-06-26] MEDS: ALLOPURINOL 300 MG TABLET (FP) PO SCH (10:29)
[2021-06-26] MEDS: MORPHINE SULFATE 2 MG/ML VIAL IVPUSH PRN (14:07)
[2021-06-26] MEDS ORDERED: MORPHINE SULFATE 2 MG/ML VIAL IVPUSH PRN (14:50)
[2021-06-26] MEDS ORDERED: POTASSIUM CHLORIDE 10 MEQ in SODIUM CHLORIDE 0.45% 1,000 ML IVPB SCH (14:52)
[2021-06-26] MEDS: POTASSIUM CHLORIDE 10 MEQ in SODIUM CHLORIDE 0.45% 1,000 ML IVPB SCH (16:27)
[2021-06-27] MEDS: CEFTRIAXONE 2 GM in DEXTROSE 5%-WATER 2 GM/100 ML BAG IVPB SCH ×2 (00:35→07:06)
[2021-06-27] MEDS: AMPICILLIN - 2 GM in SODIUM CHLORIDE 100 ML IVPB SCH ×3 (00:35→05:06)
[2021-06-27] MEDS ORDERED: SODIUM CHLORIDE 100 ML IVPB ONE ×2 (04:55→09:45)
[2021-06-27] MEDS ORDERED: AMPICILLIN SODIUM 2 GM VIAL ONE ×2 (04:55→09:44)
[2021-06-27 07:33] VITALS: BP 59/28; PULSE 80; TEMP 100.5
[2021-06-27 08:56] LABS: BASO % 0.9 % (0-2.0); EOS % 0.4 % (0-4.5); HEMATOCRIT 29.9 % (35.4-49); LYMPH % 21.5 % (8-40); MCH 27.4 pg (25.7-33.7); MCHC 30.1 g/dl (32.0-35.9); MEAN CELL VOLUME 91.1 fl (80-96); MEAN PLT VOLUME 9.2 fl (7.5-11.1); MONO % 10.1 % (3.8-10.2); NEUT % 67.1 % (42.8-82.8); PLATELET COUNT 97 10^3/uL (134-434); RBC 3.28 M/mm3 (4.00-5.60); RDW 24.9 % (11.9-15.9); WHITE BLOOD COUNT 6.3 K/mm3 (4.0-10.0)
[2021-06-27 09:18] LABS: CALCIUM 8.6 mg/dL (8.5-10.1)
[2021-06-27 09:22] LABS: CREATININE 3.8 mg/dL (0.55-1.3)
[2021-06-27 09:23] LABS: BILIRUBIN,TOTAL 0.4 mg/dL (0.2-1); TOT PROT 3.7 g/dl (6.4-8.2)
[2021-06-27 09:26] LABS: ALBUMIN 1.3 g/dl (3.4-5.0); BLOOD UREA NITROGEN 74.6 mg/dL (7-18)
[2021-06-27 12:36] LABS: ANISOCYTOSIS 1+; MACROCYTOSIS 0; PLATELET ESTIMATE DECREASED
== END 2021-06-27 09:49 | disposition expired | DRG 840 ==
LOC: JER 16:17 → JERBED 19:22 → J5S 06-21 10:08 → J8W 06-26 18:26
PROVIDERS: ADMIT Internal Medicine; ATTEND Family Medicine
DX: C85.10 Unspecified B-cell lymphoma, unspecified site (principal); L89.154 Pressure ulcer of sacral region, stage 4; J18.9 Pneumonia, unspecified organism; G93.41 Metabolic encephalopathy; A41.89 Other specified sepsis; E87.0 Hyperosmolality and hypernatremia; J98.11 Atelectasis; N17.9 Acute kidney failure, unspecified; E87.2 Acidosis; J44.9 Chronic obstructive pulmonary disease, unspecified; R50.9 Fever, unspecified; E87.6 Hypokalemia; I10 Essential (primary) hypertension; E78.5 Hyperlipidemia, unspecified; D69.6 Thrombocytopenia, unspecified; E83.52 Hypercalcemia; E86.0 Dehydration; Z99.81 Dependence on supplemental oxygen; Z85.51 Personal history of malignant neoplasm of bladder; Z89.212 Acquired absence of left upper limb below elbow
CPT/HCPCS: 36415; 71045-TC-FY; 80048; 80053; 81003; 82962; 83605; 83735; 84484; 85025; 85027; 85610; 85730; 87040; 87086; 87186; 87804; 93005; 93010; 93306-TC; 97116-GP; 97161-GP; 99285-25; C9803; J0131; U0003; U0005